=== PATIENT | male | born 1995 | race Caucasian/White ===

== ENCOUNTER 2020-02-24 20:42 | Emergency (ER) | payer SELFPAY ==
[~2020-02-24] VITALS: Ht 170.2 cm; Wt 80.0 kg
[~2020-02-24 20:42] MED LIST: CLINDAMYCIN HC300 MG PO; KEFLEX250 MG PO; TRIAMCINOLON0.025 % TOP
[2020-02-24] MEDS ORDERED: BACTRIM DS1 TAB PO (21:53)
[2020-02-24] MEDS ORDERED: KEFLEX500 MG PO (21:53)
[2020-02-24 21:59] VITALS: BP 136/76
== END 2020-02-24 22:07 | disposition home or self-care (01) | DRG 603 ==
LOC: ED 20:42
DX: L02.414 Cutaneous abscess of left upper limb (principal)

== ENCOUNTER 2021-03-13 01:24 | Emergency (ER) | payer SELFPAY ==
[~2021-03-13] VITALS: Ht 170.2 cm; Wt 73.0 kg
[~2021-03-13 01:24] MED LIST changes: +BACTRIM DS1 TAB PO; +KEFLEX500 MG PO
[2021-03-13] MEDS ORDERED: KEFLEX500 MG PO (02:11)
[2021-03-13 02:20] VITALS: BP 134/62
== END 2021-03-13 02:25 | disposition home or self-care (01) | DRG 914 ==
LOC: ED 01:24
DX: S61.041A Puncture wound with foreign body of right thumb without damage to nail, initial encounter (principal); W26.8XXA Contact with other sharp object(s), not elsewhere classified, initial encounter; Y93.19 Activity, other involving water and watercraft; Y92.828 Other wilderness area as the place of occurrence of the external cause

== ENCOUNTER 2023-05-03 11:22 | Emergency (ER) | payer SELFPAY ==
[2023-05-03] VITALS (8 sets, daily range): BP systolic 114–140; BP diastolic 73–87
[~2023-05-03] VITALS: Ht 170.2 cm; Wt 68.0 kg
[2023-05-03] MEDS ORDERED: BACTRIM DS1 TAB PO (13:11)
== END 2023-05-03 13:54 | disposition home or self-care (01) | DRG 603 ==
LOC: ED 11:22
PROC: 0H9HXZZ Drainage of Right Upper Leg Skin, External Approach (ICD-10-PCS; principal; 2023-05-03)
DX: L02.415 Cutaneous abscess of right lower limb (principal)

== ENCOUNTER 2023-05-07 11:42 | Emergency (ER) | payer SELFPAY ==
[~2023-05-07] VITALS: Ht 170.2 cm; Wt 68.0 kg
[2023-05-07 12:38] VITALS: BP 122/77
[2023-05-07 13:01] VITALS: BP 120/78
== END 2023-05-07 13:10 | disposition home or self-care (01) | DRG 951 ==
LOC: ED 11:42
DX: Z48.01 Encounter for change or removal of surgical wound dressing (principal)